=== PATIENT | male | born 1975 | race Caucasian/White ===

== ENCOUNTER 2017-10-22 11:28 | Day surgery (SDC) | payer BC, OTHER ==
[2017-10-16 09:56] VITALS: BMI 24.9
[2017-10-22] MEDS ORDERED: PROPOFOL 20 ML ONE (11:45)
[2017-10-22 13:39] VITALS: TEMP 97.7
[2017-10-22 14:04] VITALS: BP 112/70
[2017-10-22 14:05] VITALS: PULSE 81
--- NOTE | 2017-10-27 13:18 | PATH ---
Surgical Pathology Report Patient Name: ABDIRAHMAN LUTZ [facility]. Rec. #: [id number] /Age/Gender: 1975 (Age: 41) / M Account: [id number] Location: [facility]-ENDOSCOPY Taken: 10/22/2017 Received: 10/22/2017 Reported: 10/27/2017 Physicians: Kathy Giles M.D. Specimen(s) Received A: BX DUODENUM B: BX ANTRUM C: BX GASTRIC D: BX GE JUNCTION Clinical History Preoperative diagnosis: GERD Postoperative diagnosis: Rule out celiac disease, gastritis, gastric polyps Final Diagnosis A. DUODENUM, BIOPSY: DUODENAL MUCOSA WITH NO PATHOLOGIC FINDINGS. Note: Features suggestive of celiac disease are not identified in this biopsy. B. ANTRUM, BIOPSY: MILD CHRONIC GASTRITIS. IMMUNOSTAIN IS NEGATIVE FOR H. PYLORI ORGANISMS. C. GASTRIC POLYP, BIOPSY: GASTRIC FUNDIC GLAND POLYP. IMMUNOSTAIN IS NEGATIVE H PYLORI ORGANISMS. D. GE JUNCTION, BIOPSY: COLUMNAR (GASTRIC CARDIA-TYPE) MUCOSA SHOWING MILD CHRONIC INFLAMMATION. NEGATIVE FOR INTESTINAL METAPLASIA. NO ESOPHAGEAL (SQUAMOUS) MUCOSA IS IDENTIFIED. Electronically Signed Roxie Galvan M.D. Gross Description A. Received in formalin, labeled "duodenum" is a singh, irregular portion of soft tissue measuring 0.3 cm. in greatest dimension. The specimen is submitted in toto in one cassette. B. Received in formalin, labeled "antrum" is a singh, irregular portion of soft tissue measuring 0.6 cm. in greatest dimension. The specimen is submitted in toto in one cassette. C. Received in formalin, labeled "gastric polyp" are 2 singh, irregular portions of soft tissue measuring 0.4 and 0.5 cm. in greatest dimension. The specimens are submitted in toto in one cassette. D. Received in formalin, labeled "GE junction" is a singh, irregular portion of soft tissue measuring 0.4 cm. in greatest dimension. The specimen is submitted in toto in one cassette. 10/23/201710/23/2017
== END 2017-10-22 14:06 | disposition home or self-care (01) ==
LOC: FASU-ENDO 11:28
PROVIDERS: ATTEND Internal Medicine Gastroenterology
PROC: 0DB48ZX Excision of Esophagogastric Junction, Via Natural or Artificial Opening Endoscopic, Diagnostic (ICD-10-PCS; 2017-10-22)
PROC: 0DB98ZX Excision of Duodenum, Via Natural or Artificial Opening Endoscopic, Diagnostic (ICD-10-PCS; principal; 2017-10-22 12:50)
PROC: 0DB68ZX Excision of Stomach, Via Natural or Artificial Opening Endoscopic, Diagnostic (ICD-10-PCS; 2017-10-22 12:50)
DX: K29.50 Unspecified chronic gastritis without bleeding (principal); K31.7 Polyp of stomach and duodenum; R10.13 Epigastric pain
CPT/HCPCS: 88305-TC; 88342-TC

== ENCOUNTER 2017-10-22 21:28 | Emergency (ER) | payer BC, OTHER ==
[2017-10-22 21:37] VITALS: BP 132/75; PULSE 74; TEMP 99.4; BMI 26.6
--- NOTE | 2017-10-22 22:30 | PDOC ---
History of Present Illness - General Chief Complaint: Pain Stated Complaint: ABD PAIN Time Seen by Provider: 10/22/17 21:31 - History of Present Illness Initial Comments: This 41-year-old man presents with history of undergoing upper endoscopy approximately 1 PM earlier today and having onset of intermittent , brief sharp pain in his epigastrium since approximately 6 PM. This was soon after patient ate dinner. He contacted his tool marker; since biopsies were taken,he is sent here to rule out perforated viscus. Patient denies any other symptoms. He has had no nausea/vomiting/fever. Upper endoscopy was being performed to evaluate for GERD/gastritis Past History - Past Medical History Allergies/Adverse Reactions: Allergies Allergy/AdvReac Type Severity Reaction Status Date / Time No Known Allergies Allergy Verified 10/22/17 12:04 Home Medications: Ambulatory Orders Cholecalciferol (Vitamin D3) [Vitamin D -] 400 unit PO DAILY 10/16/17 Ranitidine HCl [Acid Magazine Writer] 75 mg PO DAILY 10/16/17 Simvastatin 20 mg PO DAILY 10/16/17 Anemia: No Asthma: No Cancer: No Cardiac Disorders: No CVA: No COPD: No CHF: No Dementia: No Diabetes: No GI Disorders: Yes (GERD) Disorders: No HTN: No Hypercholesterolemia: Yes Liver Disease: No Seizures: No Thyroid Disease: No - Surgical History Abdominal Surgery: No Appendectomy: No Cardiac Surgery: No Cholecystectomy: No Lung Surgery: No Neurologic Surgery: No Orthopedic Surgery: No - Suicide/Smoking/Psychosocial Hx Smoking History: Unknown if ever smoked Have you smoked in the past 12 months: No Number of Cigarettes Smoked Daily: 0 If you are a former smoker, when did you quit?: 2010 Information on smoking cessation initiated: No Hx Alcohol Use: No Drug/Substance Use Hx: No Substance Use Type: None, Marijuana Hx Substance Use Treatment: No *Physical Exam - Vital Signs Last Vital Signs Temp Pulse Resp BP Pulse Ox 99.4 F 74 14 132/75 99 10/22/17 21:31 10/22/17 21:31 10/22/17 21:31 10/22/17 21:31 10/22/17 21:31 - Physical Exam Comments: GENERAL: Adult male, alert and oriented 3 in no acute distress HEAD: Normal with no signs of trauma. EYES: PERRLA, EOMI, sclera anicteric, conjunctiva clear. ENT: Ears normal, nares patent, oropharynx clear without exudates. Dry mucous membranes. NECK: Normal range of motion, supple without lymphadenopathy, JVD, or masses. LUNGS: Breath sounds equal, clear to auscultation bilaterally. No wheezes, and no crackles. HEART:Regular rate and rhythm, normal S1 and S2 without murmur, rub or gallop. ABDOMEN:.normal bowel sounds No guarding,tenderness or rebound.No masses No distention. EXTREMITIES: Normal range of motion, no edema. No clubbing or cyanosis. No erythema, or tenderness. NEUROLOGICAL: Cranial nerves II through XII grossly intact. Normal speech. No focal neurological deficits. MUSCULOSKELETAL: Back non-tender to palpation, no CVA tenderness SKIN: Warm, Dry, normal turgor, no rashes or lesions noted. Progress Note - Progress Note Progress Note: This 41-year-old man with epigastric pain after upper endoscopy including biopsies presents to rule out perforated viscus. Patient is comfortable, alert and in no acute distress. Exam is normal. Upright PA and lateral of chest reveals no acute disease. There is clearly no free air under the diaphragm. *DC/Admit/Observation/Transfer Diagnosis at time of Disposition: Epigastric abdominal pain - Discharge Dispostion Disposition: HOME Condition at time of disposition: Stable - Referrals - Patient Instructions Printed Discharge Instructions: DI for Epigastric Pain Additional Instructions: Light diet Continue post-endoscopy instructions as per your tool marker Return to ER if you have worsening pain or experience nausea/vomiting/ fever Follow-up with your tool marker as scheduled - Post Discharge Activity
== END 2017-10-22 23:00 | disposition home or self-care (01) ==
LOC: FER 21:28
DX: R10.13 Epigastric pain (principal); Z98.890 Other specified postprocedural states; K21.9 Gastro-esophageal reflux disease without esophagitis; E78.00 Pure hypercholesterolemia, unspecified; Z87.891 Personal history of nicotine dependence
CPT/HCPCS: 71046-TC; 99282-25

== ENCOUNTER 2018-12-23 09:05 | Day surgery (SDC) | payer BC ==
[2018-12-16 18:12] VITALS: BMI 25.0
[2018-12-23] MEDS ORDERED: PROPOFOL 20 ML ONE ×2 (10:02)
[2018-12-23 10:45] VITALS: TEMP 98
[2018-12-23 11:08] VITALS: BP 110/66; PULSE 80
--- NOTE | 2018-12-25 15:55 | PATH ---
Surgical Pathology Report Patient Name: ABDIRAHMAN LUTZ [facility]. Rec. #: [id number] /Age/Gender: 1975 (Age: 43) / M Account: [id number] Location: [facility] AMBUL[facility]ORY Taken: 12/23/2018 Received: 12/23/2018 Reported: 12/25/2018 Physicians: Kathy Giles M.D. Specimen(s) Received A: SECOND PORTION OF DUODENUM B: BX ANTRUM C: GASTRIC BODY D: BX GE JUNCTION Clinical History Dyspepsia Postoperative diagnosis: Gastritis Final Diagnosis A. SECOND PORTION OF DUODENUM, BIOPSY: DUODENAL MUCOSA WITH NO PATHOLOGIC FINDINGS. B. ANTRUM, BIOPSY: MILD CHRONIC GASTRITIS. IMMUNOSTAIN IS NEGATIVE FOR H. PYLORI ORGANISMS. C. GASTRIC BODY POLYP, BIOPSY: GASTRIC FUNDIC GLAND POLYP. IMMUNOSTAIN IS NEGATIVE FOR H. PYLORI ORGANISMS. D. GE JUNCTION, BIOPSY: COLUMNAR (GASTRIC CARDIA-TYPE) MUCOSA WITH MILD CHRONIC INFLAMMATION. NEGATIVE FOR INTESTINAL METAPLASIA. NO ESOPHAGEAL (SQUAMOUS) MUCOSA IS IDENTIFIED. Electronically Signed Roxie Galvan M.D. Gross Description A. Received in formalin, labeled "biopsy second portion of duodenum" is a singh, irregular portion of soft tissue measuring 0.6 cm. in greatest dimension. The specimen is submitted in toto in one cassette. B. Received in formalin, labeled "biopsy antrum" is a singh, irregular portion of soft tissue measuring 0.4 cm. in greatest dimension. The specimen is submitted in toto in one cassette. C. Received in formalin, labeled "gastric body polyp" are 2 singh, irregular portions of soft tissue averaging 0.3 cm. in greatest dimension. The specimens are submitted in toto in one cassette. D. Received in formalin, labeled "biopsy GE junction" is a singh, irregular portion of soft tissue measuring 0.3 cm. in greatest dimension. The specimen is submitted in toto in one cassette. 12/24/2018 saudi12/24/2018
== END 2018-12-23 11:30 | disposition home or self-care (01) ==
LOC: FASU 09:05
PROVIDERS: ATTEND Internal Medicine Gastroenterology
PROC: 0DB68ZX Excision of Stomach, Via Natural or Artificial Opening Endoscopic, Diagnostic (ICD-10-PCS; 2018-12-23)
PROC: 0DB48ZX Excision of Esophagogastric Junction, Via Natural or Artificial Opening Endoscopic, Diagnostic (ICD-10-PCS; 2018-12-23)
PROC: 0DB98ZX Excision of Duodenum, Via Natural or Artificial Opening Endoscopic, Diagnostic (ICD-10-PCS; principal; 2018-12-23 10:16)
DX: K29.50 Unspecified chronic gastritis without bleeding (principal); K31.7 Polyp of stomach and duodenum; K20.9 Esophagitis, unspecified; R10.13 Epigastric pain
CPT/HCPCS: 88305-TC; 88342-TC

== ENCOUNTER 2019-06-21 23:18 | Emergency (ER) | payer BC, OTHER | END 2019-06-22 04:29 | disposition home or self-care (01) | LOC: JER 06-22 04:29 | PROC: 3E033GC Introduction of Other Therapeutic Substance into Peripheral Vein, Percutaneous Approach (ICD-10-PCS; principal; 2019-06-21) | PROC: 3E033GC Introduction of Other Therapeutic Substance into Peripheral Vein, Percutaneous Approach (ICD-10-PCS; 2019-06-21) | DX: R55 Syncope and collapse (principal); R11.2 Nausea with vomiting, unspecified; Z87.09 Personal history of other diseases of the respiratory system; Z79.2 Long term (current) use of antibiotics ==

== ENCOUNTER 2022-05-03 04:25 | Day surgery (SDC) | payer BC, OTHER ==
[2022-05-01 11:15] VITALS: BMI 23.8
[2022-05-03 09:57] VITALS: TEMP 97.1
[2022-05-03 10:32] VITALS: BP 117/72; PULSE 62; RESP 14
== END 2022-05-03 10:49 | disposition home or self-care (01) ==
LOC: JASU-ENDO 04:25
PROVIDERS: ATTEND Internal Medicine Gastroenterology
PROC: 0DJD8ZZ Inspection of Lower Intestinal Tract, Via Natural or Artificial Opening Endoscopic (ICD-10-PCS; principal; 2022-05-03 09:00)
DX: Z12.11 Encounter for screening for malignant neoplasm of colon (principal); K57.30 Diverticulosis of large intestine without perforation or abscess without bleeding; K64.8 Other hemorrhoids